=== PATIENT | female | born 1990 | race Caucasian/White ===

== ENCOUNTER 2017-10-12 01:59 | Emergency (ER) | payer OTHER ==
[~2017-10-12] VITALS: Ht 162.6 cm; Wt 63.6 kg
[2017-10-12] MEDS ORDERED: KEFLEX500 MG PO (02:22)
[2017-10-12 02:37] VITALS: BP 140/94
== END 2017-10-12 02:38 | disposition home or self-care (01) ==
LOC: EME 01:59
PROC: 3E0234Z Introduction of Serum, Toxoid and Vaccine into Muscle, Percutaneous Approach (ICD-10-PCS; principal; 2017-10-12)
DX: S50.812A Abrasion of left forearm, initial encounter (principal); Y04.0XXA Assault by unarmed brawl or fight, initial encounter; Y99.0 Civilian activity done for income or pay; Z23 Encounter for immunization; Z88.5 Allergy status to narcotic agent
CPT/HCPCS: 99281; 99283